=== PATIENT | female | born 1985 | race American Indian/Alaskan Native ===

== ENCOUNTER 2020-08-24 04:20 | Emergency (ER) | payer SELFPAY ==
[2020-08-24 05:40] VITALS: BP 134/77
--- NOTE | 2020-08-24 05:59 | XRay Report ---
LEFT FOOT 3 VIEW(S) INDICATION / CLINICAL INFORMATION: foot pain and swelling COMPARISON: None available. FINDINGS: BONES / JOINT(S): No acute fracture or subluxation. No significant arthritis. SOFT TISSUES: No significant abnormality. ADDITIONAL FINDINGS: Healed fracture ORIF medial and lateral malleoli. Type I accessory navicular Signer Name: Isaac Hooper MD Signed: 08/24/2020 5:54 AM Workstation Name: [id number]
--- NOTE | 2020-08-24 06:49 | Emergency Department Report ---
ED Lower Extremity HPI - General Chief Complaint: Extremity Injury, Lower Stated Complaint: FOOT INJURY;UNABLE TO WALK Time Seen by Provider: 08/24/20 05:19 Source: patient Mode of arrival: Ambulatory Limitations: No Limitations - History of Present Illness Initial Comments: 35-year-old obese [place] female that emerge department complaining of left foot pain due to misstep pain a couple days prior to arrival. Pain is across the top of the foot dull and throbbing worse with palpation and range of motion. She reports no numbness or tingling. Reports no broken skin. Reports no knee pain or hip pain. No calf pain. She reports having a prior history of a bad fracture to the the ankle and foot region which is now healed as it was now resolved. MD Complaint: foot injury Associated Symptoms: unable to bear weight (Patient states he is unable to bear weight needs assistance) - Related Data Allergies Allergy/AdvReac Type Severity Reaction Status Date / Time No Known Allergies Allergy Unverified 08/24/20 05:40 ED Review of Systems ROS: Stated complaint: FOOT INJURY;UNABLE TO WALK Other details as noted in HPI Comment: All other systems reviewed and negative ED Past Medical Hx - Past Medical History Previous Medical History?: Yes Hx Psychiatric Treatment: Yes (Schizophrenia) - Surgical History Past Surgical History?: Yes Additional Surgical History: Left ankle - Social History Smoking Status: Never Smoker Substance Use Type: None ED Physical Exam - General Limitations: No Limitations General appearance: alert, in no apparent distress - Head Head exam: Present: atraumatic, normocephalic - Eye Eye exam: Present: normal appearance - ENT ENT exam: Present: mucous membranes moist - Neck Neck exam: Present: normal inspection - Respiratory Respiratory exam: Present: normal lung sounds bilaterally. Absent: respiratory distress - Cardiovascular Cardiovascular Exam: Present: regular rate, normal rhythm. Absent: systolic murmur, diastolic murmur, rubs, gallop - GI/Abdominal GI/Abdominal exam: Present: soft, normal bowel sounds - Extremities Exam Extremities exam: Present: normal inspection, normal capillary refill - Back Exam Back exam: Present: normal inspection. Absent: CVA tenderness (R), CVA tenderness (L), paraspinal tenderness, vertebral tenderness - Neurological Exam Neurological exam: Present: alert, oriented X3, CN II-XII intact. Absent: motor sensory deficit, reflexes normal - Psychiatric Psychiatric exam: Present: normal affect, normal mood. Absent: agitated, anxious, manic, homicidal ideation - Skin Skin exam: Present: warm, dry, intact, normal color. Absent: rash, cyanosis, diaphoretic, pallor, abrasion ED Course Vital Signs 08/24/20 05:31 Temperature 98.3 F Pulse Rate 97 H Respiratory 16 Rate Blood Pressure 134/77 O2 Sat by Pulse 100 Oximetry ED Lower Extremity MDM - Radiology Data Radiology results: report reviewed X-ray of the foot shows old healed fracture. No acute injury. Critical care attestation.: If time is entered above; I have spent that time in minutes in the direct care of this critically ill patient, excluding procedure time. ED Disposition Clinical Impression: Foot pain, left Disposition: DC-01 TO HOME OR SELFCARE Is pt being admited?: No Does the pt Need Aspirin: No Condition: Stable
== END 2020-08-24 07:25 | disposition home or self-care (01) ==
LOC: ED 04:20
DX: M79.672 Pain in left foot (principal); F20.9 Schizophrenia, unspecified
CPT/HCPCS: 99283

== ENCOUNTER 2020-11-19 21:40 | Emergency (ER) | payer OTHER ==
[2020-11-19 23:44] VITALS: BP 115/76
[2020-11-20] MEDS ORDERED: LIDOCAINE-MPF (1%) 10 MG/1 ML VIAL 5 ML INFILTRATI ONE (00:10)
--- NOTE | 2020-11-20 00:31 | Emergency Department Report ---
- General Chief complaint: Earache Stated complaint: RT EAR PAIN Time Seen by Provider: 11/20/20 00:01 Source: patient Mode of arrival: Ambulatory Limitations: No Limitations - History of Present Illness Initial comments: Patient is a 35-year-old female presents emergency room complaints of a lump to the back of her right earlobe that began a month ago. She has not seen anyone f or this. She denies any drainage, fever, chills, nausea, vomiting, diarrhea. She denies any new piercings. She denies ever having in the past. No past medical history. No allergies medications. Last menstrual cycle end of October. - Related Data Previous Rx's Medication Instructions Recorded Last Taken Type Ketorolac [Toradol] 10 mg PO Q6H PRN #10 tablet 08/24/20 Unknown Rx Allergies Allergy/AdvReac Type Severity Reaction Status Date / Time No Known Allergies Allergy Unverified 08/24/20 05:40 Abscess Boil HPI - HPI Chief Complaint: Earache Stated Complaint: RT EAR PAIN Time Seen by Provider: 11/20/20 00:01 Home Medications: Previous Rx's Medication Instructions Recorded Last Taken Type Ketorolac [Toradol] 10 mg PO Q6H PRN #10 tablet 08/24/20 Unknown Rx Allergies/Adverse Reactions: Allergies Allergy/AdvReac Type Severity Reaction Status Date / Time No Known Allergies Allergy Unverified 08/24/20 05:40 ED Review of Systems ROS: Stated complaint: RT EAR PAIN Other details as noted in HPI Comment: All other systems reviewed and negative ED Past Medical Hx - Past Medical History Previous Medical History?: Yes Hx Psychiatric Treatment: Yes (Schizophrenia) - Surgical History Past Surgical History?: Yes Additional Surgical History: Left ankle - Social History Smoking Status: Never Smoker Substance Use Type: None - Medications Home Medications: Home Medications Medication Instructions Recorded Confirmed Last Taken Type Ketorolac [Toradol] 10 mg PO Q6H PRN #10 tablet 08/24/20 Unknown Rx ED Physical Exam - General Limitations: No Limitations General appearance: alert, in no apparent distress - Head Head exam: Present: atraumatic, normocephalic - Eye Eye exam: Present: normal appearance - ENT ENT exam: Present: mucous membranes moist, other (2 cm area of induration and fluctuance present to the right posterior ear lobe, no drainage, no opening, no necrosis, no skin denuding) - Respiratory Respiratory exam: Absent: respiratory distress, accessory muscle use - Neurological Exam Neurological exam: Present: alert, oriented X3 - Psychiatric Psychiatric exam: Present: normal affect, normal mood - Skin Skin exam: Present: warm, dry ED Course Vital Signs 11/19/20 11/20/20 23:41 01:44 Temperature 98.7 F Pulse Rate 101 H 99 H Respiratory 16 Rate Blood Pressure 115/76 [Right] O2 Sat by Pulse 100 Oximetry - I & D Right Face Type of Procedure: Simple Site: right ear lobe Blade Size: 11 I & D Procedure: betadine prep, sterile drapes applied, sterile dressing applied Progress: Verbal consent obtained by patient, risks and alternatives discussed Area prepped with Betadine, 1 cc of 1% lidocaine without epinephrine used anesthetic, Betadine prep again, sterile drapes applied, sterile gloves worn, 0.5 incision made with 11 blade, copious amounts of purulent drainage expressed, irrigated with saline, patient tolerated well, no complications, bleeding controlled, sterile dressing applied ED Medical Decision Making - Lab Data Vital Signs 11/19/20 11/20/20 23:41 01:44 Temperature 98.7 F Pulse Rate 101 H 99 H Respiratory 16 Rate Blood Pressure 115/76 [Right] O2 Sat by Pulse 100 Oximetry - Medical Decision Making Patient is a 35-year-old female presents emergency room complaints of a lump to the back of her right earlobe that began a month ago. She has not seen anyone for this. She denies any drainage, fever, chills, nausea, vomiting, diarrhea. She denies any new piercings. She denies ever having in the past. No past medical history. No allergies medications. Last menstrual cycle end of October. On exam:2 cm area of induration and fluctuance present to the right posterior ear lobe, no drainage, no opening, no necrosis, no skin denuding. Incision and drainage performed per procedure note without complications. Advised patient Please keep area clean, dry, covered. Wash with antibacterial soap and water twice a day and pat dry. Use warm compresses. Follow-up with your primary care doctor for reexamination. Return to emergency room for new or worse symptoms. Critical care attestation.: If time is entered above; I have spent that time in minutes in the direct care of this critically ill patient, excluding procedure time. ED Disposition Clinical Impression: Abscess, earlobe Qualifiers: Laterality: right Qualified Code(s): H60.01 - Abscess of right external ear Disposition: TO HOME OR SELFCARE Is pt being admited?: No Does the pt Need Aspirin: No Condition: Stable Instructions: Skin Abscess, [id number] Additional Instructions: Please keep area clean, dry, covered. Wash with antibacterial soap and water twice a day and pat dry. Use warm compresses. Follow-up with your primary care doctor for reexamination. Return to emergency room for new or worse symptoms. Referrals: your, primary care doctor [Other] - 2-3 Days Time of Disposition: 00:55 Print Language: UPPER [place]
== END 2020-11-20 01:44 | disposition home or self-care (01) ==
LOC: ED 21:40
DX: H60.01 Abscess of right external ear (principal); F20.9 Schizophrenia, unspecified; Z79.899 Other long term (current) drug therapy
CPT/HCPCS: 99282